=== PATIENT | male | born 1985 | race Two or more races ===

== ENCOUNTER 2017-02-14 09:57 | Emergency (ER) | payer MEDICAID ==
[~2017-02-14] VITALS: Ht 175.3 cm; Wt 86.0 kg
[2017-02-14 10:30] VITALS: BP 115/79
[2017-02-14] MEDS ORDERED: SODIUM CHLORIDE 0.9% 1,000 ML IV ONE (11:07)
[2017-02-14] MEDS ORDERED: FAMOTIDINE 20MG/2ML VIAL IV STA (11:07)
[2017-02-14] MEDS ORDERED: KETOROLAC 30MG/ML VIAL IV STA (11:07)
[2017-02-14] MEDS ORDERED: ONDANSETRON HCL 4MG/2ML VIAL IV STA (11:07)
[2017-02-14 11:35] LABS: HEMATOCRIT. 52.5 % (42.0-52.0); HEMOGLOBIN. 17.9 g/dL (14.0-18.0); MEAN CORPUSCULAR HEMOGLOBIN 29.2 pg (28.0-32.0); MEAN CORPUSCULAR HGB CONC 34.2 g/dL (31.0-37.0); MEAN CORPUSCULAR VOLUME 85.5 fL (80.0-94.0); MEAN PLATELET VOLUME 6.7 fl (7.4-10.4); PLATELET 332 x1000/uL (130-400); RED BLOOD CELL COUNT 6.14 mill/uL (4.7-6.1); RED CELL DISTRIBUTION WIDTH 12.4 % (11.6-14.6); WHITE BLOOD COUNT 10.9 x1000/uL (4.5-11.0)
[2017-02-14 11:38] LABS: DIFFERENTIAL COMMENT 1
[2017-02-14 11:41] LABS: INR 1.1; PROTHROMBIN TIME 11.4 sec
[2017-02-14 11:48] LABS: ALANINE AMINOTRANSFERASE 27 IU/L (13-61); ANION GAP 13; CALCIUM 9.4 mg/dL (8.5-10.1); CARBON DIOXIDE 30 mEq/L (21-32); CHLORIDE 97 mEq/L (98-107); INDEX HEMOLYSI 1 (1-3); INDEX ICTERIC 1 (1-4); INDEX LIPEMIC 1 (1-3); LIPASE 108 IU/L (73-393); UREA NITROGEN BLOOD 21 mg/dL (7-21); eGFR > 60 mL/min (>60)
[2017-02-14 11:54] LABS: PLATELET ESTIMATE NORMAL
[2017-02-14 12:09] LABS: CLARITY URINE CLEAR (CLEAR); COLOR URINE DARK YELLOW (YELLOW); GLUCOSE URINE NEGATIVE (NEGATIVE); KETONES URINE TRACE (NEGATIVE); LEUKOCYTE ESTERASE URINE NEGATIVE (NEGATIVE); NITRITE URINE NEGATIVE (NEGATIVE); OCCULT BLOOD URINE NEGATIVE (NEGATIVE); PH URINE 5.5 (4.5-8.0); PROTEIN URINE TRACE (NEGATIVE); SPECIFIC GRAVITY URINE 1.032 (1.005-1.030)
[2017-02-14 12:29] LABS: BACTERIA URINE NONE SEEN; HYALINE CASTS URINE 0-5 /lpf; RBC URINE NONE SEEN /hpf (0-2); SQUAMOUS EPITHELIAL CELL URINE RARE /lpf (RARE/1+); WBC URINE 0-2 /hpf (0-2)
== END 2017-02-14 13:12 | disposition home or self-care (01) ==
LOC: ER 10:31
DX: R19.7 Diarrhea, unspecified (principal); R10.9 Unspecified abdominal pain; R11.2 Nausea with vomiting, unspecified; F17.210 Nicotine dependence, cigarettes, uncomplicated; F12.10 Cannabis abuse, uncomplicated
CPT/HCPCS: 36415; 80053; 81001; 83690; 85025; 85610; 96361; 96374; 96375; 99285; J1885; J2405; J3490; J7030; Z7610

== ENCOUNTER 2017-04-20 12:04 | Emergency (ER) | payer MEDICAID ==
[~2017-04-20] VITALS: Ht 175.3 cm; Wt 86.0 kg
[2017-04-20] MEDS ORDERED: IBUPROFEN 800MG TABLET PO ONE (14:30)
[2017-04-20] MEDS ORDERED: TETRACAINE 0.5% OPHTH DROPS 4ML OP ONE (14:30)
[2017-04-20] MEDS ORDERED: FLUORESCEIN SODIUM 1MG/STRIP OP ONE ×2 (14:30→16:15)
[2017-04-20 15:11] VITALS: BP 130/70
[2017-04-20] MEDS ORDERED: BALANCED SALT IRRIG SOLN 15ML IO ONE (16:45)
== END 2017-04-20 16:44 | disposition home or self-care (01) ==
LOC: ER 14:30
DX: H10.9 Unspecified conjunctivitis (principal)
CPT/HCPCS: 99282

== ENCOUNTER 2017-06-03 14:01 | Emergency (ER) | payer MEDICAID ==
[~2017-06-03] VITALS: Ht 175.3 cm; Wt 86.0 kg
[2017-06-03 16:45] VITALS: BP 118/80
== END 2017-06-03 16:50 | disposition home or self-care (01) ==
LOC: ER 15:53
DX: S01.81XD Laceration without foreign body of other part of head, subsequent encounter (principal); X58.XXXD Exposure to other specified factors, subsequent encounter; Y92.89 Other specified places as the place of occurrence of the external cause; Y99.8 Other external cause status
CPT/HCPCS: 99281; Z7610

== ENCOUNTER 2017-06-06 10:35 | Emergency (ER) | payer MEDICAID ==
[~2017-06-06] VITALS: Ht 175.3 cm; Wt 86.0 kg
[2017-06-06] MEDS ORDERED: LIDOCAINE HCL 1%/EPI 1:200,000 30 ML VIAL MC ONE (11:15)
[2017-06-06] MEDS ORDERED: BACITRACIN ZINC OINT UDPKT TOP ONE (11:15)
[2017-06-06 12:25] VITALS: BP 136/74
== END 2017-06-06 12:44 | disposition home or self-care (01) ==
LOC: ER 11:27
DX: S01.01XA Laceration without foreign body of scalp, initial encounter (principal); X58.XXXA Exposure to other specified factors, initial encounter; Y93.89 Activity, other specified; Y92.89 Other specified places as the place of occurrence of the external cause; Y99.8 Other external cause status
CPT/HCPCS: 12001; 99283; A4217; Z7610

== ENCOUNTER 2017-06-11 15:15 | Emergency (ER) | payer MEDICAID ==
[~2017-06-11] VITALS: Ht 185.4 cm; Wt 86.0 kg
[2017-06-11] MEDS ORDERED: BACITRACIN ZINC OINT UDPKT TOP ONE ×2 (18:30→22:30)
[2017-06-11] MEDS ORDERED: LIDOCAINE HCL 1%/EPI 1:200,000 30 ML VIAL MC ONE (18:30)
[2017-06-11 19:42] LABS: BASOPHILS % 3.8 % (0.0-2.0); EOSINOPHILS % 2.6 % (0.0-5.0); HEMOGLOBIN. 11.7 g/dL (14.0-18.0); MEAN CORPUSCULAR HEMOGLOBIN 28.5 pg (28.0-32.0); MEAN CORPUSCULAR VOLUME 85.4 fL (80.0-94.0); MEAN PLATELET VOLUME 6.7 fl (7.4-10.4); MONOCYTES % 7.5 % (2.0-8.0); NEUTROPHILS % 61.1 % (40.0-76.0); PLATELET 349 x1000/uL (130-400); RED BLOOD CELL COUNT 4.09 mill/uL (4.7-6.1); RED CELL DISTRIBUTION WIDTH 13.7 % (11.6-14.6)
[2017-06-11 19:48] LABS: PROTHROMBIN TIME 10.8 sec (9.4-11.6)
[2017-06-11 22:11] VITALS: BP 123/87
== END 2017-06-11 22:24 | disposition home or self-care (01) ==
LOC: ER 15:23
DX: S01.01XA Laceration without foreign body of scalp, initial encounter (principal); T81.30XA Disruption of wound, unspecified, initial encounter; X58.XXXA Exposure to other specified factors, initial encounter; Y93.89 Activity, other specified; Y92.89 Other specified places as the place of occurrence of the external cause; Y99.8 Other external cause status
CPT/HCPCS: 12002; 36415; 85025; 85610; 86850; 86900; 86901; 99285; Z7610; 12001

== ENCOUNTER 2020-07-22 13:53 | Emergency (ER) | payer MEDICAID ==
[~2020-07-22] VITALS: Ht 175.3 cm; Wt 87.0 kg
[2020-07-22 17:53] VITALS: BP 111/65
== END 2020-07-22 17:55 | disposition home or self-care (01) ==
LOC: ER 13:53
DX: S80.862A Insect bite (nonvenomous), left lower leg, initial encounter (principal); S80.861A Insect bite (nonvenomous), right lower leg, initial encounter; W57.XXXA Bitten or stung by nonvenomous insect and other nonvenomous arthropods, initial encounter; Y93.89 Activity, other specified; Y92.89 Other specified places as the place of occurrence of the external cause; Y99.8 Other external cause status
CPT/HCPCS: 99283

== ENCOUNTER 2020-08-22 22:14 | Emergency (ER) | payer MEDICAID ==
[~2020-08-22] VITALS: Ht 175.3 cm; Wt 95.4 kg
[2020-08-22] MEDS ORDERED: HYDROCODONE/ACETAMINOPHEN 5/325MG TABLET PO ONE (22:45)
[2020-08-22] MEDS ORDERED: BACITRACIN ZINC OINT UDPKT TOP ONE (22:45)
[2020-08-22] MEDS ORDERED: ONDANSETRON HCL 4MG/2ML INJ IV STA (23:20)
[2020-08-22] MEDS ORDERED: MORPHINE SULFATE 4 MG/ML CPJ (NOT FOR IM USE) IV STA (23:20)
[2020-08-22] MEDS ORDERED: CEFAZOLIN 1000MG PREMIX 50 ML IV ONE (23:30)
[2020-08-23 00:20] LABS: CHLORIDE 109 mEq/L (98-107)
[2020-08-23 00:21] LABS: BASOPHILS % 2.3 % (0.0-2.0); EOSINOPHILS % 3.9 % (0.0-5.0); HEMATOCRIT. 38.1 % (42.0-52.0); HEMOGLOBIN. 13.1 g/dL (14.0-18.0); LYMPHOCYTES % 27.3 % (20.0-50.0); MEAN CORPUSCULAR HEMOGLOBIN 30.1 pg (28.0-32.0); MEAN CORPUSCULAR VOLUME 87.6 fL (80.0-94.0); MONOCYTES % 7.7 % (2.0-8.0); NEUTROPHILS % 58.8 % (40.0-76.0); PLATELET 291 x1000/uL (130-400); RED BLOOD CELL COUNT 4.35 mill/uL (4.7-6.1); RED CELL DISTRIBUTION WIDTH 12.4 % (11.6-14.6)
[2020-08-23 03:31] LABS: *AMPHETAMINES SCREEN URINE PRESUMTIVE POSITIVE (NEGATIVE); *BARBITURATES SCREEN URINE NEGATIVE (NEGATIVE); *BENZODIAZEPINES SCREEN URINE NEGATIVE (NEGATIVE); *COCAINE SCREEN URINE NEGATIVE (NEGATIVE)
[2020-08-23 03:32] LABS: CANNABINOID URINE SCREEN NEGATIVE (NEGATIVE); METHADONE URINE SCREEN NEGATIVE (NEGATIVE); OPIATES URINE SCREEN NEGATIVE (NEGATIVE); PHENCYCLIDINE URINE SCREEN NEGATIVE (NEGATIVE)
[2020-08-23 04:31] VITALS: BP 137/77
== END 2020-08-23 04:36 | disposition left against medical advice (07) ==
LOC: ER 22:14
DX: M79.644 Pain in right finger(s) (principal)
CPT/HCPCS: 26770; 36415; 73110; 73130; 73140; 80053; 80305; 80320; 85025; 96365; 96375; 99284; J0690; J2270; J2405; G0480

== ENCOUNTER 2021-02-09 20:49 | Emergency (ER) | payer MEDICAID ==
[~2021-02-09] VITALS: Ht 190.5 cm; Wt 91.0 kg
[2021-02-09 20:54] VITALS: BP 142/74
[2021-02-09] MEDS ORDERED: TETANUS, DIPHTHERIA, PERTUSSIS VAC/PF 0.5ML (>7YR OLD) IM ONE (21:30)
[2021-02-09] MEDS ORDERED: LIDOCAINE HCL/EPINEPHRINE 1%-EPI 1:100,000 10 ML VIAL IJ ONE (21:30)
[2021-02-09] MEDS ORDERED: LIDOCAINE HCL/EPINEPHRINE 1%-EPI 1:100,000 20 ML VIAL INFIL ONE (21:30)
[2021-02-09] MEDS ORDERED: ACETAMINOPHEN 325MG TABLET PO ONE (21:30)
[2021-02-09] MEDS ORDERED: BACITRACIN ZINC OINT UDPKT TOP ONE (21:30)
[2021-02-09] MEDS ORDERED: TOPUD MT (22:13)
== END 2021-02-09 22:40 | disposition home or self-care (01) ==
LOC: ER 20:49
DX: S01.01XA Laceration without foreign body of scalp, initial encounter (principal); F17.210 Nicotine dependence, cigarettes, uncomplicated; Y04.0XXA Assault by unarmed brawl or fight, initial encounter; Y93.89 Activity, other specified; Y92.89 Other specified places as the place of occurrence of the external cause
CPT/HCPCS: 12002; 90715; 99283; J3490; Z7610

== ENCOUNTER 2025-03-07 07:35 | Emergency (ER) | payer MEDICAID ==
[~2025-03-07] VITALS: Ht 170.2 cm; Wt 93.0 kg
[~2025-03-07 07:35] MED LIST: TOPUD MT
[2025-03-07 07:47] VITALS: O2SAT 100
[2025-03-07 07:51] VITALS: BP 109/73; PULSE 110; RESP 16; TEMP 36.8; O2SAT 100
[2025-03-07] MEDS ORDERED: AMOX1TAB16 MT (08:03)
== END 2025-03-07 08:06 | disposition left against medical advice (07) ==
LOC: ER 07:35
DX: S62.92XA Unspecified fracture of left hand, initial encounter for closed fracture (principal); W34.00XA Accidental discharge from unspecified firearms or gun, initial encounter; Y93.89 Activity, other specified; Y92.89 Other specified places as the place of occurrence of the external cause; Y99.8 Other external cause status
CPT/HCPCS: 73130; 99283